=== PATIENT | female | born 1935 | race Hispanic/Latino ===

== ENCOUNTER 2020-03-17 10:45 | Emergency (ER) | payer MEDICARE ==
[~2020-03-17] VITALS: Ht 152.4 cm; Wt 72.6 kg
[2020-03-17] MEDS ORDERED: ACETAMINOPHEN 325 MG TAB PO STA (12:04)
[2020-03-18] MEDS ORDERED: METOPROLOL SUCC25 MG (03:57)
[2020-03-18] MEDS ORDERED: PROTONIX40 MG/ML (03:58)
[2020-03-18] MEDS ORDERED: PENTOXIFYLLINE400 MG PO (04:35)
[2020-03-18] MEDS ORDERED: METFORMIN HCL500 MG PO (04:35)
[2020-03-18] MEDS ORDERED: ASPIRIN EC81 MG PO (04:35)
[2020-03-18] MEDS ORDERED: LOVASTATIN40 MG (04:35)
[2020-03-18] MEDS ORDERED: QUETIAPINE FUMA25 MG (04:35)
[2020-03-18] MEDS ORDERED: LISINOPRIL10 MG PO (04:35)
[2020-03-18] MEDS ORDERED: MONTELUKAST SOD10 MG PO (04:35)
== END 2020-03-17 12:27 | disposition home or self-care (01) ==
LOC: ER 10:45
DX: M25.512 Pain in left shoulder (principal); W01.0XXA Fall on same level from slipping, tripping and stumbling without subsequent striking against object, initial encounter; Y93.01 Activity, walking, marching and hiking; Y92.008 Other place in unspecified non-institutional (private) residence as the place of occurrence of the external cause; I10 Essential (primary) hypertension; E11.9 Type 2 diabetes mellitus without complications; K21.9 Gastro-esophageal reflux disease without esophagitis; J45.909 Unspecified asthma, uncomplicated
CPT/HCPCS: 71046; 99283

== ENCOUNTER 2020-03-17 18:05 | Inpatient (IN) | payer MEDICARE ==
[~2020-03-17] VITALS: Ht 149.9 cm; Wt 60.8 kg
[2020-03-17 18:58] LABS: BASOPHILS # (AUTO) 0.1 (0.0-0.1); BASOPHILS % 0.4 % (0.0-1.0); HEMATOCRIT 39.4 % (34.2-44.1); HEMOGLOBIN 12.3 g/dL (12.0-16.0); LYMPHOCYTES # (AUTO) 2.6 (1.0-3.2); LYMPHOCYTES % 10.5 % (18.0-39.1); MEAN CORPUSCULAR HEMOGLOBIN 31.5 pg (28-32); MEAN CORPUSCULAR HGB CONC 31.2 g/dL (31-35); MONOCYTES # (AUTO) 1.6 (0.2-0.8); MONOCYTES % 6.3 % (4.4-11.3); NEUTROPHILS # (AUTO) 20.4 (2.1-6.9); NEUTROPHILS % 81.1 % (38.7-80.0); PLATELET COUNT 201 x10e3/uL (140-360); RED CELL DISTRIBUTION WIDTH 16.2 % (11.7-14.4)
[2020-03-17 19:19] LABS: ALBUMIN 3.9 g/dL (3.5-5.0); ALBUMIN/GLOBULIN RATIO 1.3 (0.8-2.0); ANION GAP 27.8 mmol/L (8-16); CALCIUM 9.5 mg/dL (8.4-10.2); CREATININE, SERUM 1.71 mg/dL (0.57-1.11); POTASSIUM 3.8 mmol/L (3.5-5.1)
[2020-03-17] MEDS ORDERED: SODIUM CHLORIDE 0.9% 1000ML 1,000 ML IV STA ×2 (19:23→19:46)
[2020-03-17 19:25] LABS: CREATINE KINASE MB 10.4 ng/mL (0-5.0)
[2020-03-17] MEDS ORDERED: CEFTRIAXONE SOD 1 GM/NS 50 ML 50 ML IV SCH (19:30)
[2020-03-17] MEDS ORDERED: ONDANSETRON HCL INJ 2MG/ML 2ML 2 MG/ML VIAL IV STA (19:45)
[2020-03-17] MEDS ORDERED: SODIUM CHLORIDE 0.9% 500ML 500 ML IV STA (19:46)
[2020-03-17] MEDS ORDERED: ONDANSETRON HCL INJ 2MG/ML 2ML 2 MG/ML VIAL ONE (19:52)
[2020-03-17 20:13] LABS: CLARITY,URINE TURBID (CLEAR); COLOR,URINE YELLOW (YELLOW); KETONES,URINE NEGATIVE (NEGATIVE); LEUKOCYTE ESTERASE ,URINE LARGE (NEGATIVE); NITRITE,URINE NEGATIVE (NEGATIVE); PROTEIN,URINE DIPSTICK >=300 (NEGATIVE); URINE UROBILINOGEN 0.2 mg/dL (0.2 - 1)
[2020-03-17 20:26] LABS: BACTERIA,URINE MANY /HPF; WBC,URINE (MAN) 21-50 /HPF (0-5)
[2020-03-17 22:30] VITALS: BP 134/76
[2020-03-17 23:00] VITALS: BP 115/58
[2020-03-17] MEDS ORDERED: ONDANSETRON HCL INJ 2MG/ML 2ML 2 MG/ML VIAL IV PRN (23:00)
[2020-03-17] MEDS ORDERED: HYDRALAZINE HCL 20 MG/ML VIAL IV PRN (23:00)
[2020-03-17] MEDS: SODIUM CHLORIDE 0.9% 1000ML 1,000 ML IV SCH (23:51)
[2020-03-17] MEDS: PIPER-TAZ 3.375 GM 50 ML IV SCH (23:51)
[2020-03-18] VITALS (25 sets, daily range): BP systolic 94–153; BP diastolic 52–82
[2020-03-18] MEDS ORDERED: METOPROLOL SUCC25 MG (03:57)
[2020-03-18] MEDS ORDERED: PROTONIX40 MG/ML (03:58)
[2020-03-18] MEDS ORDERED: LOVASTATIN40 MG (04:35)
[2020-03-18] MEDS ORDERED: MONTELUKAST SOD10 MG PO (04:35)
[2020-03-18] MEDS ORDERED: ASPIRIN EC81 MG PO (04:35)
[2020-03-18] MEDS ORDERED: METFORMIN HCL500 MG PO (04:35)
[2020-03-18] MEDS ORDERED: LISINOPRIL10 MG PO (04:35)
[2020-03-18] MEDS ORDERED: QUETIAPINE FUMA25 MG (04:35)
[2020-03-18] MEDS ORDERED: PENTOXIFYLLINE400 MG PO (04:35)
[2020-03-18 06:03] LABS: BASOPHILS % 0.5 % (0.0-1.0); EOSINOPHILS % 0.3 % (0.0-6.0); HEMATOCRIT 32.1 % (34.2-44.1); HEMOGLOBIN 10.2 g/dL (12.0-16.0); LYMPHOCYTES % 13.7 % (18.0-39.1); MEAN CORPUSCULAR HEMOGLOBIN 31.6 pg (28-32); MEAN CORPUSCULAR HGB CONC 31.8 g/dL (31-35); MEAN CORPUSCULAR VOLUME 99.4 fL (81-99); MONOCYTES # (AUTO) 0.4 (0.2-0.8); MONOCYTES % 5.6 % (4.4-11.3); NEUTROPHILS % 79.6 % (38.7-80.0); PLATELET COUNT 151 x10e3/uL (140-360); RED BLOOD COUNT 3.23 x10e6/uL (3.6-5.1); RED CELL DISTRIBUTION WIDTH 15.9 % (11.7-14.4)
[2020-03-18 06:26] LABS: ALBUMIN 3.1 g/dL (3.5-5.0); ALBUMIN/GLOBULIN RATIO 1.1 (0.8-2.0); CREATININE, SERUM 1.19 mg/dL (0.57-1.11); MAGNESIUM 1.7 MG/DL (1.3-2.1); PHOSPHORUS 5.4 MG/DL (2.3-4.7)
[2020-03-18] MEDS: PIPER-TAZ 3.375 GM 50 ML IV SCH ×3 (06:29→22:04)
[2020-03-18 07:08] LABS: THYROID STIMULATING HORMONE 0.466 uIU/mL (0.350-4.940)
[2020-03-18] MEDS ORDERED: DEXTROSE 50% SYRINGE 50 ML IV PRN (08:30)
[2020-03-18] MEDS: SODIUM CHLORIDE 0.9% 1000ML 1,000 ML IV SCH ×2 (08:44→10:00)
[2020-03-18] MEDS: ACETAMINOPHEN 325 MG TAB PO PRN ×2 (09:09→18:05)
[2020-03-18] MEDS ORDERED: SODIUM CHLORIDE 0.9% 50ML 50 ML ONE (09:19)
[2020-03-18] MEDS ORDERED: IOPAMIDOL 370 MG/ML 200 ML INFUS..BTL INJ ONE (09:19)
[2020-03-18 10:43] LABS: BAND NEUTROPHILS % (MANUAL) 6 %; LYMPHOCYTES % (MANUAL) 14 % (19-48); MONOCYTES % (MANUAL) 8 % (3.4-9.0); NEUTROPHILS % (MANUAL) 71 % (40-74); PROMYELOCYTES % (MANUAL) 1 % (0-0)
[2020-03-18 10:44] LABS: ELLIPTOCYTE, RBC SLIGHT
[2020-03-18 10:45] LABS: PLATELET ESTIMATE ADEQUATE; PLATELET MORPHOLOGY COMMENT NORMAL; POIKILOCYTOSIS SLIGHT; RBC MORPHOLOGY COMMENT ABNORMAL
[2020-03-18] MEDS: INSULIN LISPRO 100 UNIT/1 ML 3ML VIAL SQ SCH ×3 (11:30→21:39)
[2020-03-18 15:05] LABS: BASOPHILS % 0.3 % (0.0-1.0); HEMATOCRIT 31.2 % (34.2-44.1); HEMOGLOBIN 9.8 g/dL (12.0-16.0); LYMPHOCYTES # (AUTO) 0.9 (1.0-3.2); LYMPHOCYTES % 11.9 % (18.0-39.1); MEAN CORPUSCULAR HGB CONC 31.4 g/dL (31-35); MEAN CORPUSCULAR VOLUME 98.7 fL (81-99); MONOCYTES # (AUTO) 0.4 (0.2-0.8); MONOCYTES % 5.7 % (4.4-11.3); NEUTROPHILS # (AUTO) 6.2 (2.1-6.9); NEUTROPHILS % 81.6 % (38.7-80.0); PLATELET COUNT 118 x10e3/uL (140-360); RED BLOOD COUNT 3.16 x10e6/uL (3.6-5.1); RED CELL DISTRIBUTION WIDTH 16.6 % (11.7-14.4)
[2020-03-18 15:23] LABS: ANION GAP 17.4 mmol/L (8-16); CALCIUM 7.9 mg/dL (8.4-10.2); CREATININE, SERUM 0.97 mg/dL (0.57-1.11); POTASSIUM 3.4 mmol/L (3.5-5.1)
[2020-03-18 15:34] LABS: ABG PH 7.43 (7.35-7.45)
[2020-03-18 15:35] LABS: ABG HCO3 17 mmol/L (22-26); ABG PCO2 26 mmHg (35-45); ABG PO2 63 mmHg (80-105); ABG TCO2 18
[2020-03-18 15:45] LABS: CLARITY,URINE CLEAR (CLEAR); COLOR,URINE YELLOW (YELLOW)
[2020-03-18 15:46] LABS: KETONES,URINE NEGATIVE (NEGATIVE); LEUKOCYTE ESTERASE ,URINE MODERATE (NEGATIVE); NITRITE,URINE NEGATIVE (NEGATIVE); PROTEIN,URINE DIPSTICK TRACE (NEGATIVE); URINE UROBILINOGEN 0.2 mg/dL (0.2 - 1)
[2020-03-18 15:56] LABS: BACTERIA,URINE MODERATE /HPF; WBC,URINE (MAN) 21-50 /HPF (0-5)
[2020-03-18] MEDS: CLINDAMYCIN PHOS 900MG/ 50ML 50 ML IV SCH (16:09)
[2020-03-18] MEDS ORDERED: SIMVASTATIN 20 MG TAB PO SCH (16:30)
[2020-03-18 18:00] LABS: CREATININE,URINE RANDOM 22.03 mg/dL (47-110); TOTAL PROTEIN, URINE 19.9 mg/dL (1-14)
[2020-03-18] MEDS: MAGNESIUM HYDROXIDE 30 ML UDC PO PRN (18:05)
[2020-03-18] MEDS: SIMVASTATIN 40 MG TAB PO SCH (21:00)
[2020-03-18] MEDS: HEPARIN SOD (PORCINE) 5,000 UNIT/ML VIAL SC SCH (21:38)
[2020-03-19] VITALS (21 sets, daily range): BP systolic 131–166; BP diastolic 47–78
[2020-03-19] MEDS: CLINDAMYCIN PHOS 900MG/ 50ML 50 ML IV SCH ×3 (00:26→17:36)
[2020-03-19] MEDS: SODIUM CHLORIDE 0.9% 1000ML 1,000 ML IV SCH (01:01)
[2020-03-19 05:16] LABS: BASOPHILS % 0.6 % (0.0-1.0); HEMATOCRIT 26.7 % (34.2-44.1); HEMOGLOBIN 8.6 g/dL (12.0-16.0); LYMPHOCYTES # (AUTO) 1.5 (1.0-3.2); LYMPHOCYTES % 20.6 % (18.0-39.1); MEAN CORPUSCULAR HEMOGLOBIN 31.4 pg (28-32); MEAN CORPUSCULAR HGB CONC 32.2 g/dL (31-35); MEAN CORPUSCULAR VOLUME 97.4 fL (81-99); MONOCYTES # (AUTO) 0.3 (0.2-0.8); MONOCYTES % 4.7 % (4.4-11.3); NEUTROPHILS # (AUTO) 5.3 (2.1-6.9); NEUTROPHILS % 73.1 % (38.7-80.0); PLATELET COUNT 102 x10e3/uL (140-360); RED BLOOD COUNT 2.74 x10e6/uL (3.6-5.1); RED CELL DISTRIBUTION WIDTH 16.4 % (11.7-14.4)
[2020-03-19 05:36] LABS: BLOOD UREA NITROGEN 30 mg/dL (7-26); BUN/CREATININE RATIO 45 (6-25); CALCIUM 7.7 mg/dL (8.4-10.2); CARBON DIOXIDE 24 mmol/L (22-29); CHLORIDE 116 mmol/L (98-107); CREATININE, SERUM 0.66 mg/dL (0.57-1.11); EST GLOMERULAR FILTRATION RATE > 60 ML/MIN (60-); GLUCOSE 94 mg/dL (74-118); SODIUM 146 mmol/L (136-145)
[2020-03-19] MEDS: PIPER-TAZ 3.375 GM 50 ML IV SCH ×3 (05:45→22:50)
[2020-03-19 07:26] LABS: BAND NEUTROPHILS % (MANUAL) 8 %; LYMPHOCYTES % (MANUAL) 26 % (19-48); MONOCYTES % (MANUAL) 1 % (3.4-9.0); NEUTROPHILS % (MANUAL) 64 % (40-74); PROMYELOCYTES % (MANUAL) 1 % (0-0); TOXIC GRANULATION SLIGHT
[2020-03-19 07:28] LABS: ELLIPTOCYTE, RBC SLIGHT; POIKILOCYTOSIS SLIGHT
[2020-03-19 07:30] LABS: ANISOCYTOSIS SLIGHT; PLATELET ESTIMATE MODERATELY DECREASED; PLATELET MORPHOLOGY COMMENT NORMAL; RBC MORPHOLOGY COMMENT ABNORMAL
[2020-03-19] MEDS: INSULIN LISPRO 100 UNIT/1 ML 3ML VIAL SQ SCH ×4 (07:30→21:00)
[2020-03-19] MEDS ORDERED: POTASSIUM CHLORIDE 20MEQ/100ML 200 ML IV ONE (09:00)
[2020-03-19] MEDS: METOPROLOL SUCCINATE 25 MG TAB XL PO SCH (09:04)
[2020-03-19] MEDS: PANTOPRAZOLE SOD 40 MG TABEC PO SCH (09:04)
[2020-03-19] MEDS: DEXTROSE 5% 1,000 ML IV SCH ×2 (09:05→21:00)
[2020-03-19] MEDS: PENTOXIFYLLINE 400 MG TAB CR PO SCH (09:05)
[2020-03-19] MEDS: HEPARIN SOD (PORCINE) 5,000 UNIT/ML VIAL SC SCH ×2 (09:05→21:00)
[2020-03-19] MEDS: DOCUSATE SODIUM 100 MG CAP PO SCH ×2 (09:05→17:36)
[2020-03-19] MEDS ORDERED: POLYETHYLENE GLYCOL 3350 17 GM PACK PO PRN (11:15)
[2020-03-19] MEDS ORDERED: DEXTROSE 50% SYRINGE 50 ML IV PRN (11:15)
[2020-03-19] MEDS ORDERED: ONDANSETRON HCL INJ 2MG/ML 2ML 2 MG/ML VIAL IV PRN (11:15)
[2020-03-19] MEDS ORDERED: BENZONATATE 100 MG CAP PO PRN (11:15)
[2020-03-19] MEDS ORDERED: SIMETHICONE 80 MG CHEW PO PRN (11:15)
[2020-03-19] MEDS ORDERED: DOCUSATE SODIUM 100 MG CAP PO PRN (11:15)
[2020-03-19] MEDS ORDERED: ALBUTEROL/IPRATROPIUM 3 ML NEB NEB PRN (11:15)
[2020-03-19] MEDS ORDERED: POTASSIUM CHLORIDE 20 MEQ TAB CR PO PRN (11:15)
[2020-03-19] MEDS: ACETAMINOPHEN 325 MG TAB PO PRN (22:51)
[2020-03-19] MEDS: SIMVASTATIN 40 MG TAB PO SCH (22:52)
[2020-03-20] VITALS (23 sets, daily range): BP systolic 112–161; BP diastolic 52–96
[2020-03-20] MEDS: CLINDAMYCIN PHOS 900MG/ 50ML 50 ML IV SCH ×3 (01:05→16:28)
[2020-03-20] MEDS: DEXTROSE 5% 1,000 ML IV SCH ×2 (04:45→15:11)
[2020-03-20 05:04] LABS: BASOPHILS % 0.1 % (0.0-1.0); EOSINOPHILS # (AUTO) 0.1 (0.0-0.4); EOSINOPHILS % 0.7 % (0.0-6.0); HEMATOCRIT 25.9 % (34.2-44.1); HEMOGLOBIN 8.2 g/dL (12.0-16.0); LYMPHOCYTES # (AUTO) 1.7 (1.0-3.2); LYMPHOCYTES % 22.9 % (18.0-39.1); MEAN CORPUSCULAR HEMOGLOBIN 30.9 pg (28-32); MEAN CORPUSCULAR HGB CONC 31.7 g/dL (31-35); MEAN CORPUSCULAR VOLUME 97.7 fL (81-99); MONOCYTES # (AUTO) 0.4 (0.2-0.8); MONOCYTES % 4.9 % (4.4-11.3); NEUTROPHILS # (AUTO) 5.3 (2.1-6.9); PLATELET COUNT 89 x10e3/uL (140-360); RED BLOOD COUNT 2.65 x10e6/uL (3.6-5.1); RED CELL DISTRIBUTION WIDTH 16.3 % (11.7-14.4)
[2020-03-20 05:21] LABS: ALANINE AMINOTRANSFERASE 28 IU/L (0-55); ALBUMIN 2.3 g/dL (3.5-5.0); ALBUMIN/GLOBULIN RATIO 0.8 (0.8-2.0); ALKALINE PHOSPHATASE 66 IU/L (40-150); ANION GAP 10.4 mmol/L (8-16); BLOOD UREA NITROGEN 17 mg/dL (7-26); BUN/CREATININE RATIO 27 (6-25); CALCIUM 7.9 mg/dL (8.4-10.2); CARBON DIOXIDE 25 mmol/L (22-29); CHLORIDE 110 mmol/L (98-107); CREATININE, SERUM 0.63 mg/dL (0.57-1.11); EST GLOMERULAR FILTRATION RATE > 60 ML/MIN (60-); GLUCOSE 109 mg/dL (74-118); MAGNESIUM 1.8 MG/DL (1.3-2.1); PHOSPHORUS 1.8 MG/DL (2.3-4.7); POTASSIUM 3.4 mmol/L (3.5-5.1); SODIUM 142 mmol/L (136-145)
[2020-03-20] MEDS: PIPER-TAZ 3.375 GM 50 ML IV SCH ×3 (06:00→21:27)
[2020-03-20] MEDS: INSULIN LISPRO 100 UNIT/1 ML 3ML VIAL SQ SCH ×4 (07:30→22:09)
[2020-03-20] MEDS: PANTOPRAZOLE SOD 40 MG TABEC PO SCH (08:30)
[2020-03-20] MEDS: DOCUSATE SODIUM 100 MG CAP PO SCH ×2 (08:30→16:30)
[2020-03-20] MEDS: PENTOXIFYLLINE 400 MG TAB CR PO SCH (08:30)
[2020-03-20] MEDS: METOPROLOL SUCCINATE 25 MG TAB XL PO SCH (08:30)
[2020-03-20] MEDS: HEPARIN SOD (PORCINE) 5,000 UNIT/ML VIAL SC SCH (08:32)
[2020-03-20] MEDS: SIMVASTATIN 40 MG TAB PO SCH (21:27)
[2020-03-20] MEDS: ACETAMINOPHEN 325 MG TAB PO PRN (21:28)
[2020-03-20] MEDS: MELATONIN 5 MG TABLET PO PRN (21:33)
[2020-03-20] MEDS: LIDOCAINE 4% PATCH TP PRN (21:34)
[2020-03-21] VITALS (20 sets, daily range): BP systolic 112–155; BP diastolic 46–83
[2020-03-21] MEDS: DEXTROSE 5% 1,000 ML IV SCH ×3 (00:57→21:26)
[2020-03-21] MEDS: CLINDAMYCIN PHOS 900MG/ 50ML 50 ML IV SCH ×3 (00:57→16:21)
[2020-03-21] MEDS: CHLORASEPTIC SPRAY 177 ML BTL MM PRN ×2 (04:00→21:27)
[2020-03-21 04:50] LABS: BASOPHILS % 0.1 % (0.0-1.0); EOSINOPHILS # (AUTO) 0.1 (0.0-0.4); EOSINOPHILS % 1.5 % (0.0-6.0); HEMATOCRIT 23.8 % (34.2-44.1); HEMOGLOBIN 7.7 g/dL (12.0-16.0); LYMPHOCYTES # (AUTO) 1.9 (1.0-3.2); LYMPHOCYTES % 23.2 % (18.0-39.1); MEAN CORPUSCULAR HEMOGLOBIN 31.4 pg (28-32); MEAN CORPUSCULAR HGB CONC 32.4 g/dL (31-35); MEAN CORPUSCULAR VOLUME 97.1 fL (81-99); MONOCYTES # (AUTO) 0.5 (0.2-0.8); MONOCYTES % 6.4 % (4.4-11.3); NEUTROPHILS # (AUTO) 5.5 (2.1-6.9); NEUTROPHILS % 67.9 % (38.7-80.0); PLATELET COUNT 81 x10e3/uL (140-360); RED BLOOD COUNT 2.45 x10e6/uL (3.6-5.1); RED CELL DISTRIBUTION WIDTH 16.4 % (11.7-14.4)
[2020-03-21 05:17] LABS: ALANINE AMINOTRANSFERASE 21 IU/L (0-55); ALBUMIN/GLOBULIN RATIO 0.8 (0.8-2.0); ALKALINE PHOSPHATASE 64 IU/L (40-150); ANION GAP 8.3 mmol/L (8-16); BLOOD UREA NITROGEN 15 mg/dL (7-26); BUN/CREATININE RATIO 24 (6-25); CALCIUM 7.7 mg/dL (8.4-10.2); CARBON DIOXIDE 26 mmol/L (22-29); CHLORIDE 111 mmol/L (98-107); CREATININE, SERUM 0.63 mg/dL (0.57-1.11); EST GLOMERULAR FILTRATION RATE > 60 ML/MIN (60-); GLUCOSE 110 mg/dL (74-118); POTASSIUM 3.3 mmol/L (3.5-5.1); SODIUM 142 mmol/L (136-145)
[2020-03-21] MEDS: PIPER-TAZ 3.375 GM 50 ML IV SCH ×3 (05:33→21:27)
[2020-03-21] MEDS: ACETAMINOPHEN 325 MG TAB PO PRN (06:29)
[2020-03-21] MEDS: INSULIN LISPRO 100 UNIT/1 ML 3ML VIAL SQ SCH ×4 (07:08→22:02)
[2020-03-21 08:03] LABS: ANISOCYTOSIS SLIGHT; EOSINOPHILS % (MANUAL) 2 % (0-7); HYPOCHROMASIA SLIGHT; LYMPHOCYTES % (MANUAL) 30 % (19-48); MONOCYTES % (MANUAL) 3 % (3.4-9.0); NEUTROPHILS % (MANUAL) 65 % (40-74); OVALOCYTES SL; RBC MORPHOLOGY COMMENT ABNORMAL
[2020-03-21 08:04] LABS: PLATELET ESTIMATE MODERATELY DECREASED; PLATELET MORPHOLOGY COMMENT NORMAL
[2020-03-21] MEDS: MAGNESIUM HYDROXIDE 30 ML UDC PO PRN (08:16)
[2020-03-21] MEDS: PENTOXIFYLLINE 400 MG TAB CR PO SCH (08:16)
[2020-03-21] MEDS: METOPROLOL SUCCINATE 25 MG TAB XL PO SCH (08:16)
[2020-03-21] MEDS: PANTOPRAZOLE SOD 40 MG TABEC PO SCH (08:16)
[2020-03-21] MEDS: DOCUSATE SODIUM 100 MG CAP PO SCH ×2 (08:16→16:21)
[2020-03-21] MEDS: HYDROCODONE/APAP 5MG-325MG TAB PO PRN ×2 (12:00→18:40)
[2020-03-21] MEDS: SIMVASTATIN 40 MG TAB PO SCH (21:26)
[2020-03-21] MEDS: LIDOCAINE 4% PATCH TP PRN (21:27)
[2020-03-21] MEDS: MELATONIN 5 MG TABLET PO PRN (21:27)
[2020-03-21] MEDS ORDERED: PHENYLEPH/SHARK OIL/MO/PETROL 30 GM OINT RC PRN (23:00)
[2020-03-22] VITALS (7 sets, daily range): BP systolic 111–171; BP diastolic 47–75
[2020-03-22] MEDS: NYSTATIN SUSPENSION 5 ML UDC PO SCH ×5 (00:31→23:31)
[2020-03-22] MEDS: CLINDAMYCIN PHOS 900MG/ 50ML 50 ML IV SCH (00:31)
[2020-03-22] MEDS: HYDROCODONE/APAP 5MG-325MG TAB PO PRN ×2 (00:32→09:18)
[2020-03-22] MEDS: CHLORASEPTIC SPRAY 177 ML BTL MM PRN (02:00)
[2020-03-22 05:32] LABS: BASOPHILS % 0.2 % (0.0-1.0); EOSINOPHILS # (AUTO) 0.1 (0.0-0.4); EOSINOPHILS % 1.4 % (0.0-6.0); LYMPHOCYTES # (AUTO) 2.1 (1.0-3.2); LYMPHOCYTES % 25.5 % (18.0-39.1); MEAN CORPUSCULAR HEMOGLOBIN 32.4 pg (28-32); MEAN CORPUSCULAR HGB CONC 31.9 g/dL (31-35); MEAN CORPUSCULAR VOLUME 101.4 fL (81-99); MONOCYTES # (AUTO) 0.8 (0.2-0.8); MONOCYTES % 9.7 % (4.4-11.3); NEUTROPHILS # (AUTO) 4.9 (2.1-6.9); NEUTROPHILS % 59.5 % (38.7-80.0); PLATELET COUNT 80 x10e3/uL (140-360); RED CELL DISTRIBUTION WIDTH 16.7 % (11.7-14.4)
[2020-03-22 05:37] LABS: HEMATOCRIT 21.3 % (34.2-44.1)
[2020-03-22 05:39] LABS: HEMOGLOBIN 6.8 g/dL (12.0-16.0)
[2020-03-22] MEDS: PIPER-TAZ 3.375 GM 50 ML IV SCH ×3 (05:51→22:35)
[2020-03-22 06:00] LABS: ANION GAP 9.9 mmol/L (8-16); BLOOD UREA NITROGEN 15 mg/dL (7-26); BUN/CREATININE RATIO 23 (6-25); CALCIUM 7.6 mg/dL (8.4-10.2); CARBON DIOXIDE 24 mmol/L (22-29); CHLORIDE 109 mmol/L (98-107); CREATININE, SERUM 0.66 mg/dL (0.57-1.11); EST GLOMERULAR FILTRATION RATE > 60 ML/MIN (60-); GLUCOSE 124 mg/dL (74-118); POTASSIUM 3.9 mmol/L (3.5-5.1); SODIUM 139 mmol/L (136-145)
[2020-03-22] MEDS ORDERED: SODIUM CHLORIDE 0.9% 250ML 250 ML IV ONE (06:30)
[2020-03-22] MEDS: DEXTROSE 5% 1,000 ML IV SCH ×2 (07:03→17:00)
[2020-03-22] MEDS: PANTOPRAZOLE SOD 40 MG TABEC PO SCH (07:30)
[2020-03-22] MEDS: INSULIN LISPRO 100 UNIT/1 ML 3ML VIAL SQ SCH ×4 (07:30→20:59)
[2020-03-22] MEDS: METOPROLOL SUCCINATE 25 MG TAB XL PO SCH (07:30)
[2020-03-22] MEDS: DOCUSATE SODIUM 100 MG CAP PO SCH ×3 (08:24→17:00)
[2020-03-22] MEDS: PENTOXIFYLLINE 400 MG TAB CR PO SCH (08:24)
[2020-03-22] MEDS ORDERED: CLINDAMYCIN PHOS 900MG/ 50ML 50 ML IV SCH (09:00)
[2020-03-22] MEDS ORDERED: SODIUM CHLORIDE 0.9% 250ML 250 ML ONE (10:12)
[2020-03-22] MEDS ORDERED: FUROSEMIDE INJ 10 MG/ML 2 ML VIAL IV NR ×2 (13:45→18:00)
[2020-03-22] MEDS: TRAMADOL HCL 50 MG TAB PO PRN ×2 (16:22→23:31)
[2020-03-22] MEDS ORDERED: FUROSEMIDE INJ 10 MG/ML 2 ML VIAL IV SCH (18:00)
[2020-03-22] MEDS: ACETAMINOPHEN 325 MG TAB PO PRN (20:45)
[2020-03-22 20:56] LABS: HEMATOCRIT 32.9 % (34.2-44.1)
[2020-03-22] MEDS: SIMVASTATIN 40 MG TAB PO SCH (20:59)
[2020-03-22] MEDS: MELATONIN 5 MG TABLET PO PRN (23:31)
[2020-03-23] VITALS (8 sets, daily range): BP systolic 130–180; BP diastolic 68–102
[2020-03-23] MEDS: DEXTROSE 5% 1,000 ML IV SCH ×2 (03:08→14:34)
[2020-03-23] MEDS: NYSTATIN SUSPENSION 5 ML UDC PO SCH ×3 (05:11→18:06)
[2020-03-23 05:52] LABS: BASOPHILS % 0.3 % (0.0-1.0); EOSINOPHILS # (AUTO) 0.1 (0.0-0.4); HEMOGLOBIN 10.8 g/dL (12.0-16.0); LYMPHOCYTES # (AUTO) 1.8 (1.0-3.2); LYMPHOCYTES % 30.4 % (18.0-39.1); MEAN CORPUSCULAR HEMOGLOBIN 31.5 pg (28-32); MEAN CORPUSCULAR HGB CONC 33.8 g/dL (31-35); MEAN CORPUSCULAR VOLUME 93.3 fL (81-99); MONOCYTES # (AUTO) 0.5 (0.2-0.8); NEUTROPHILS # (AUTO) 3.3 (2.1-6.9); NEUTROPHILS % 54.6 % (38.7-80.0); PLATELET COUNT 80 x10e3/uL (140-360); RED BLOOD COUNT 3.43 x10e6/uL (3.6-5.1); RED CELL DISTRIBUTION WIDTH 16.3 % (11.7-14.4)
[2020-03-23 06:43] LABS: ANION GAP 10.6 mmol/L (8-16); BLOOD UREA NITROGEN 13 mg/dL (7-26); BUN/CREATININE RATIO 22 (6-25); CALCIUM 7.7 mg/dL (8.4-10.2); CARBON DIOXIDE 25 mmol/L (22-29); CHLORIDE 108 mmol/L (98-107); CREATININE, SERUM 0.58 mg/dL (0.57-1.11); EST GLOMERULAR FILTRATION RATE > 60 ML/MIN (60-); GLUCOSE 122 mg/dL (74-118); POTASSIUM 3.6 mmol/L (3.5-5.1); SODIUM 140 mmol/L (136-145)
[2020-03-23 07:20] LABS: FERRITIN 125.83 ng/mL (4.63-204.00)
[2020-03-23] MEDS: INSULIN LISPRO 100 UNIT/1 ML 3ML VIAL SQ SCH ×4 (07:30→20:22)
[2020-03-23] MEDS: PANTOPRAZOLE SOD 40 MG TABEC PO SCH (14:20)
[2020-03-23] MEDS: METOPROLOL SUCCINATE 25 MG TAB XL PO SCH (14:21)
[2020-03-23] MEDS: DOCUSATE SODIUM 100 MG CAP PO SCH ×2 (14:21→18:06)
[2020-03-23] MEDS: PENTOXIFYLLINE 400 MG TAB CR PO SCH (14:21)
[2020-03-23] MEDS: HYDRALAZINE HCL 20 MG/ML VIAL IV PRN (16:38)
[2020-03-23] MEDS: TRAMADOL HCL 50 MG TAB PO PRN (16:43)
[2020-03-23] MEDS: ACETAMINOPHEN 325 MG TAB PO PRN (18:06)
[2020-03-23] MEDS: SIMVASTATIN 40 MG TAB PO SCH (20:36)
[2020-03-23] MEDS: MELATONIN 5 MG TABLET PO PRN (20:36)
[2020-03-24] VITALS (8 sets, daily range): BP systolic 125–165; BP diastolic 61–94
[2020-03-24] MEDS: DEXTROSE 5% 1,000 ML IV SCH ×3 (00:02→22:10)
[2020-03-24] MEDS: NYSTATIN SUSPENSION 5 ML UDC PO SCH ×4 (00:02→17:32)
[2020-03-24] MEDS: ACETAMINOPHEN 325 MG TAB PO PRN (00:10)
[2020-03-24] MEDS: DIPHENHYDRAMINE HCL 25 MG CAP PO PRN (00:36)
[2020-03-24] MEDS: TRAMADOL HCL 50 MG TAB PO PRN (02:32)
[2020-03-24] MEDS: METOPROLOL SUCCINATE 25 MG TAB XL PO SCH (07:30)
[2020-03-24] MEDS: INSULIN LISPRO 100 UNIT/1 ML 3ML VIAL SQ SCH ×4 (07:30→21:00)
[2020-03-24] MEDS ORDERED: BENZONATATE 100 MG CAP PO PRN (08:30)
[2020-03-24] MEDS ORDERED: TRAMADOL HCL 50 MG TAB PO PRN (08:30)
[2020-03-24] MEDS: PENTOXIFYLLINE 400 MG TAB CR PO SCH (09:00)
[2020-03-24] MEDS: DOCUSATE SODIUM 100 MG CAP PO SCH ×2 (09:00→17:31)
[2020-03-24] MEDS: PANTOPRAZOLE SOD 40 MG TABEC PO SCH (10:16)
[2020-03-24] MEDS: SIMVASTATIN 40 MG TAB PO SCH (22:10)
[2020-03-24] MEDS: MELATONIN 5 MG TABLET PO PRN (22:22)
[2020-03-25] VITALS (8 sets, daily range): BP systolic 136–175; BP diastolic 66–102
[2020-03-25] MEDS: NYSTATIN SUSPENSION 5 ML UDC PO SCH ×4 (01:08→18:00)
[2020-03-25] MEDS ORDERED: CYANOCOBALAMIN INJ 1,000 MCG/ML VIAL IM ONE (03:00)
[2020-03-25 05:27] LABS: BASOPHILS % 0.4 % (0.0-1.0); EOSINOPHILS # (AUTO) 0.1 (0.0-0.4); EOSINOPHILS % 0.8 % (0.0-6.0); HEMATOCRIT 37.7 % (34.2-44.1); HEMOGLOBIN 12.2 g/dL (12.0-16.0); LYMPHOCYTES # (AUTO) 2.3 (1.0-3.2); LYMPHOCYTES % 29.2 % (18.0-39.1); MEAN CORPUSCULAR HGB CONC 32.4 g/dL (31-35); MEAN CORPUSCULAR VOLUME 95.9 fL (81-99); MONOCYTES # (AUTO) 0.6 (0.2-0.8); MONOCYTES % 7.4 % (4.4-11.3); NEUTROPHILS # (AUTO) 4.7 (2.1-6.9); PLATELET COUNT 130 x10e3/uL (140-360); RED BLOOD COUNT 3.93 x10e6/uL (3.6-5.1); RED CELL DISTRIBUTION WIDTH 16.3 % (11.7-14.4)
[2020-03-25] MEDS: DEXTROSE 5% 1,000 ML IV SCH ×3 (05:31→20:38)
[2020-03-25] MEDS: INSULIN LISPRO 100 UNIT/1 ML 3ML VIAL SQ SCH ×5 (07:30→20:21)
[2020-03-25] MEDS: PANTOPRAZOLE SOD 40 MG TABEC PO SCH (08:30)
[2020-03-25] MEDS: METOPROLOL SUCCINATE 25 MG TAB XL PO SCH (08:30)
[2020-03-25] MEDS: DOCUSATE SODIUM 100 MG CAP PO SCH ×2 (09:06→17:00)
[2020-03-25] MEDS: CYANOCOBALAMIN INJ 1,000 MCG/ML VIAL IM SCH (09:06)
[2020-03-25] MEDS: PENTOXIFYLLINE 400 MG TAB CR PO SCH (09:06)
[2020-03-25] MEDS: SIMVASTATIN 40 MG TAB PO SCH (20:34)
[2020-03-25] MEDS: HYDRALAZINE HCL 20 MG/ML VIAL IV PRN (20:35)
[2020-03-25] MEDS: MELATONIN 5 MG TABLET PO PRN (20:35)
[2020-03-25] MEDS: TRAMADOL HCL 50 MG TAB PO PRN (23:22)
[2020-03-25] MEDS: DIPHENHYDRAMINE HCL 25 MG CAP PO PRN (23:22)
[2020-03-26] VITALS (7 sets, daily range): BP systolic 134–159; BP diastolic 74–93
[2020-03-26 05:59] LABS: BASOPHILS % 0.3 % (0.0-1.0); EOSINOPHILS # (AUTO) 0.1 (0.0-0.4); EOSINOPHILS % 1.1 % (0.0-6.0); HEMATOCRIT 32.7 % (34.2-44.1); HEMOGLOBIN 10.6 g/dL (12.0-16.0); LYMPHOCYTES # (AUTO) 1.9 (1.0-3.2); LYMPHOCYTES % 26.2 % (18.0-39.1); MEAN CORPUSCULAR HEMOGLOBIN 31.2 pg (28-32); MEAN CORPUSCULAR HGB CONC 32.4 g/dL (31-35); MEAN CORPUSCULAR VOLUME 96.2 fL (81-99); MONOCYTES # (AUTO) 0.5 (0.2-0.8); MONOCYTES % 7.5 % (4.4-11.3); NEUTROPHILS # (AUTO) 4.6 (2.1-6.9); NEUTROPHILS % 63.5 % (38.7-80.0); PLATELET COUNT 138 x10e3/uL (140-360); RED CELL DISTRIBUTION WIDTH 16.3 % (11.7-14.4)
[2020-03-26] MEDS: NYSTATIN SUSPENSION 5 ML UDC PO SCH ×4 (06:20→18:00)
[2020-03-26] MEDS: INSULIN LISPRO 100 UNIT/1 ML 3ML VIAL SQ SCH ×3 (07:30→16:30)
[2020-03-26] MEDS: METOPROLOL SUCCINATE 25 MG TAB XL PO SCH (07:30)
[2020-03-26] MEDS: PANTOPRAZOLE SOD 40 MG TABEC PO SCH (07:30)
[2020-03-26] MEDS: CYANOCOBALAMIN INJ 1,000 MCG/ML VIAL IM SCH (09:00)
[2020-03-26] MEDS: PENTOXIFYLLINE 400 MG TAB CR PO SCH (09:00)
[2020-03-26] MEDS: DOCUSATE SODIUM 100 MG CAP PO SCH ×2 (09:00→17:00)
[2020-03-26] MEDS: DEXTROSE 5% 1,000 ML IV SCH (11:00)
[2020-03-26] MEDS ORDERED: IOPAMIDOL 370 MG/ML 200 ML INFUS..BTL INJ ONE (11:05)
[2020-03-26] MEDS ORDERED: SODIUM CHLORIDE 0.9% 100 ML ONE (11:05)
[2020-03-26] MEDS ORDERED: HEPARIN SOD (PORCINE) 1000 UNIT/ML SDV ONE (13:02)
[2020-03-26] MEDS: SIMVASTATIN 40 MG TAB PO SCH (19:37)
== END 2020-03-26 19:52 | DRG 871 ==
LOC: ER 18:32 → ERHOLD 21:25 → ICU 22:16 → MED/SURG 03-21 22:58 → MED/SURG2 03-23 19:50
PROVIDERS: ADMIT Internal Medicine; ATTEND Internal Medicine
PROC: 30233N1 Transfusion of Nonautologous Red Blood Cells into Peripheral Vein, Percutaneous Approach (ICD-10-PCS; principal; 2020-03-22)
DX: A41.9 Sepsis, unspecified organism (principal); N17.0 Acute kidney failure with tubular necrosis; J69.0 Pneumonitis due to inhalation of food and vomit; S22.42XA Multiple fractures of ribs, left side, initial encounter for closed fracture; E87.2 Acidosis; N39.0 Urinary tract infection, site not specified; M48.54XA Collapsed vertebra, not elsewhere classified, thoracic region, initial encounter for fracture; R65.20 Severe sepsis without septic shock; W19.XXXA Unspecified fall, initial encounter; F03.90 Unspecified dementia, unspecified severity, without behavioral disturbance, psychotic disturbance, mood disturbance, and anxiety; S00.03XA Contusion of scalp, initial encounter; D69.6 Thrombocytopenia, unspecified; D64.9 Anemia, unspecified; Z20.828 Contact with and (suspected) exposure to other viral communicable diseases
CPT/HCPCS: 36415; 36600; 70450; 71045; 71046; 71111; 71260; 74174; 74177; 74230; 76770; 78278; 80048; 80053; 81001; 82270; 82550; 82553; 82570; 82607; 82728; 82746; 82805; 82948; 83540; 83605; 83735; 84100; 84156; 84443; 84466; 84484; 85014; 85018; 85025; 85045; 86850; 86900; 86920; 87040; 87086; 93005; 96360; 96361; 96372; 97139; 99285; A9512; J0360; J0696; J1644; J1940; J2405; J2543; J3420; J3480; J7030; J7040; J7050; J7070; P9016; Q9967; U0002